=== PATIENT | male | born 1945 | race Caucasian/White ===

== ENCOUNTER 2019-07-20 16:37 | Inpatient (IN) | payer OTHER, MEDICARE ==
[~2019-07-20] VITALS: Ht 175.3 cm; Wt 110.0 kg
--- NOTE | 2019-07-20 16:37 | NUR ---
PT ARRIVES ALERT AND ORIENTED TO SELF ONLY WITH EMS
[2019-07-20 17:29] LABS: HEMATOCRIT 42.8 % (39.0-50.0); HEMOGLOBIN 14.2 g/dl (14.0-18.0); IMMATURE GRANULOCYTES 0.3 % (0.0-5.0); MEAN CELL VOLUME 87.5 fL CALC (80.0-100.0); MEAN CORPUSCULAR HGB CONC 33.2 g/L CALC (32.0-36.0); NEUT# 7.44 thou/uL (1.82-7.42); RED BLOOD COUNT 4.89 mill/uL (4.70-6.10); RED CELL DISTRI WIDTH 12.9 % (11.5-15.5)
[2019-07-20 17:32] LABS: URINE BILIRUBIN - DIPSTICK NEGATIVE (NEGATIVE); URINE BLOOD DIPSTICK NEGATIVE (NEGATIVE); URINE COLOR YELLOW; URINE GLUCOSE - DIPSTICK NEGATIVE (NEGATIVE); URINE KETONE TRACE mg/dL (NEGATIVE); URINE LEUK ESTERASE NEGATIVE (NEGATIVE); URINE NITRITE - DIPSTICK NEGATIVE (Negative); URINE PROTEIN - DIPSTICK NEGATIVE (NEG-TRACE); URINE SPECIFIC GRAVITY 1.025
[2019-07-20 17:41] LABS: BARBITURATES NEGATIVE (NEGATIVE); COCAINE NEGATIVE (NEGATIVE); METHADONE NEGATIVE (NEGATIVE); OXCYCODONE NEGATIVE (NEGATIVE); TETRAHYDROCANNABIONOL NEGATIVE (NEGATIVE); TRICYLIC ANTIDEPRESSANTS NEGATIVE (NEGATIVE)
--- NOTE | 2019-07-20 17:45 | NUR ---
PT RESTING QUIETLY ON STRETCHER,, AT 8EDSIDE
[2019-07-20 17:48] LABS: ALBUMIN 4.1 g/dL (3.2-5.0); ALKALINE PHOSPHATASE 76 u/l (38-126); ANION GAP 15 (6-22 (CALC)); BILIRUBIN, TOTAL 1.7 mg/dL (0.0-1.4); BUN 18 mg/dL (8-23); BUN/CREATININE RATIO 24 (12-20 (CALC)); CARBON DIOXIDE 21 mmol/l (22-30); CHLORIDE 101 mmol/l (95-108); CREATININE 0.7 mg/dL (0.7-1.3); ETHYL ALCOHOL 0 mg/dl (0-30); GFR > 60 ML/MIN (>=60 (CALC)); GFR FOR AFR.AMER. > 60 ML/MIN (>=60 (CALC)); LIPASE 58 u/l (23-300); MAGNESIUM 2.1 mg/dL (1.6-2.3); POTASSIUM 3.8 mmol/l (3.5-5.1); SGOT/AST 29 u/l (19-48); SODIUM 133 mmol/l (137-146); TOTAL PROTEIN 8.2 g/dL (6.3-8.2)
[2019-07-20 17:58] LABS: ACT PARTIAL THROMBO TIME 27.4 SECONDS (20.0-32.5); PROTHROMBIN TIME 10.6 SECONDS (9.0-12.5)
--- NOTE | 2019-07-20 18:19 | NUR ---
PT 8ACK FROM ULTRASOUND. STATES HE IS DOWN HERE ONLY FOR A SHORT TIME THAT HE AND HIS ARE STAYING OUT IN [facility] AND NORMALLY LIVE IN [place]. ASKED IF THIS IS CORRECT AND SHE STATES EVERYTHING IS CORRECT ALTHOUGH SHE STATES SHE HAS NOTICED IN LAST MONTH THAT HE HASNT 8EEN ALERT HE NORMALLY IS.
--- NOTE | 2019-07-20 18:44 | NUR ---
PT APPEARS TO REMAIN ALERT/ORIENTED X3, AT 8EDSIDE., ADVISED OF WAIT TIME FOR ULTRASOUND RESULTS AND XRAYS OF 8IL FEET.
--- NOTE | 2019-07-20 20:20 | NUR ---
PT STATES HAVING A 3/10 PAIN ON NUMERIC PAIN SCALE.
--- NOTE | 2019-07-21 04:11 | NUR ---
PT RESTING IN BED WITH EYES CLOSED. PT 0/10 ON FACES PAIN SCALE. PT HAS CONFUSION, PT UNABLE TO VERBALLY EXPRESS HIMSELF OR PROVIDE HEALTH INFORMATION/HISTORY. PT HAS NO S/S OF ANY ACUTE DISTRESS NOTED. BREATHING EASY AND UNLABORED.
[2019-07-21 04:25] VITALS: BP 140/80
[2019-07-21 07:00] VITALS: BP 149/71
--- NOTE | 2019-07-21 07:00 | NUR ---
PATIENT ON FLOOR NEXT TO BED IN STTING POSITION, URINE ON FLOOR, PATIENT ALERT WITH CONFUSION, PATIENT S/S RESP DISTRESS, PATIENT ON ROOM AIR, PATIENT NO C/O FALLS, NO APPARENT INJURY, NOTIFIED NO NEW ORDERS, ON-COMING RN AND OFF-GOING RN ASSISTED PATIENT TO BED, PATIENT STATED HE DID NOT HIT HEAD DURING UNWITNESS FALL, PATIENT TOILETED AND SHOWER GIVEN, WILL CONTINUE TO MONITOR PATIENT, BED ALARM ATTACH TO PATIENT, CALL LIGHT WITHIN REACH
--- NOTE | 2019-07-21 07:23 | NUR ---
PT HAD A FALL @0700 DR. TAYLOR NOTIFIED. NO APPARENT INJURIES NOTED, PT WAS FOUND ON THE FLOOR OF ROOM 271 SITTING ON THE FLOOR. ON-COMING NURSE NOTIFIED OF PATIENT FALL. PT IS TRANSFERRED BACK TO BED ASSIST X2. NO BLEEDING, SWELLING OR APPARENT INJURY NOTED. PT STABLE AND IN BED WITH ALARM. ALL SAFETY AND COMFORT MEASURES MAINTAINED AT ALL TIMES.
--- NOTE | 2019-07-21 07:32 | NUR ---
PT HAS PULLED OUT 22G IN LEFT WRIST, 22G PLACED IN RIGHT UPPER ANTERIOR ARM, NO S/S OF INFILTRATE, SKIN PATENT SKIN WARM AND DRY TO THE TOUCH. PT HAS INCREASED RESTLESSNESS AND HAS EPISODES OF YELLING OUT VERY LOUDLY. PT IS NOT COMMUNICATING OR ANSWER QUESTIONS AT THIS TIME. PT IS IN BED WITH ALARM. REPORT GIVEN TO DAY NURSE.
--- NOTE | 2019-07-21 07:39 | NUR ---
PT HAD A FALL @0700 CALLED AND MADE AWARE THAT PT HAS NOT SUSTAINED ANY APPARENT INJURY. DAY NURSE NOTIFIED OF FALL. PT FOUND IN ROOM 271 SITTING ON THE FLOOR. PT IS ALERT WITH CONFUSION PRIOR TO FALL. PT IS REPOSITIONED BACK TO BED WITH ASSIST X2. V/S WNL, PT STABLE IN BED WITH BED ALARM. ALL SAFETY AND COMFORT MEASURES MAINTAINED AT ALL TIMES.
--- NOTE | 2019-07-21 11:36 | NUR ---
PATIENT A/OX2, NO C/O PAIN, NO S/S RESP DISTRESS, PATIENT ON ROOM AIR, PATIENT SITTING UP IN BED, PATIENT REMOVED IV, ATTEMPTED TO REDIRECT PATIENT PURPOSE OF IV THERAPY REDIRECTED PATIENT ON PLACE AND TIME WAS UNSUCCESSFUL, PATIENT SPOUSE NOTIFIED ABOUT PATIENT FALL AND PLAN OF CARE FOR FALL PREVENTION, BED ALARM ATTACH TO PATIENT, WILL CONTINUE TO MONITOR PATIENT, CALL LIGHT WITHIN REACH
[2019-07-21 15:00] VITALS: BP 157/83
--- NOTE | 2019-07-21 16:30 | NUR ---
PATIENT ALERT WITH CONFUSION, NO C/O PAIN, NO S/S RESP DISTRESS, PATIENT ON ROOM AIR, PATIENT REMOVED SECOND IV, NOTIFIED DR. TAYLOR ABOUT PATIENT IS RESTLESS, REINSERT 3RD IV FOR IVF AND ANTIBOTICS, WILL CONTINUE TO MONITOR PATIENT, CALL LIGHT WITHIN REACH
[2019-07-21 18:50] VITALS: BP 144/77
--- NOTE | 2019-07-21 19:00 | NUR ---
RECEIVED REPORT FROM DAY NURSE PATIENT HAD SEVERAL ATTEMPT ON SETTING OFF BED ALARM, GAIT UNSTEADY, PATIENT HAVING HALLUCINATION, ATIVAN GIVEN BY DAY NURSE.
--- NOTE | 2019-07-21 22:00 | NUR ---
CT DONE AT THIS TIME.
--- NOTE | 2019-07-22 02:01 | NUR ---
CALLED CARDINAL AND INFORMED ABOUT PATIENT GOING ON 4TH DOSE OF VANCO WITH ORDERS TO GET TROUGH
--- NOTE | 2019-07-22 02:10 | NUR ---
TROUGH 11, CALLED AND SPOKE TO [facility] AND TO CONTINUE CURRENT DOSE
[2019-07-22 03:28] VITALS: BP 125/73
--- NOTE | 2019-07-22 05:10 | NUR ---
PATIENT CALM AT THIS TIME, NO DISCOMFORTS NOTED AT THIS TIME, CIWA SCORE 0
--- NOTE | 2019-07-22 07:15 | NUR ---
REPORT RECEIVED FROM RHODA DOW. PT RESTING IN BED SEMI FOWLERS WITH EYES OPEN; ALERT AND ORIENTED ONLY TO SELF. VSS. DENIES PAIN. RESPIRATIONS EVEN AND UNLABORED ON ROOM AIR. IV FLUIDS INFUSING WITHOUT DIFFICULTY; IV SITE APPEARS HEALTHY. LUNGS ARE CLEAR. HEART RATE IRREGULAR. 4+ PITTING PEDAL EDEMA WITH MODERATE REDNESS TO BILTERAL FEET. PLAN OF CARE REVIEWED. PT ENCOURAGED TO VERABLIZE CONCERNS. STATES UNDERSTANDING. SAFETY MEASURS IN PLACE INCLUDING BED ALARM. CALL LIGHT WITHIN REACH.
[2019-07-22 08:00] VITALS: BP 139/85
--- NOTE | 2019-07-22 08:38 | NUR ---
IV PUMP ALARM SOUNDED; PT SITTING UP IN BED AFTER EATING BREAKFAST WITH IV SITE REMOVED AND SITTING ON BREAKFAST TRAY. WHEN ASKED WHY PT REMOVED HIS IV HE SMILES AND REPONDS, "IT WAS FINISHED."
--- NOTE | 2019-07-22 09:07 | NUR ---
S: OSIEL MAGALLON is a 73 M who presents with cellulitis. He has a history of hypertensio and hyperlipidemia. All medications in patient's chart were reviewed. O: VS: BP ,139/85 mmHg, P 99 bpm, RR 16 breaths/min, T 98 F W 110 kg, HT 69 in, Scr 0.7 mg/dl A: Blood culture is pending. P: Pt recd vancomycin 1g IV x1 dose in the ED on 07/20/19 @ 1738. Vancomycin was ordered for pharmacy to dose. Increased to vancomycin 1250mg IV q8h @ 0100, 0900, and 1700. Pt recd 3 doses of 1250mg. Vanco trough before 0100 dose was 11. Continue current dose. Vancomycin goal trough is between 10-15 mcg/ml. Pharmacy will follow and or advise on antibiotics use as needed.
--- NOTE | 2019-07-22 09:31 | NUR ---
NEW IV STARTED TO LFA AND VANCO INFUSING AT THIS TIME. PT GOT A SHOWER AND NOW RESTING IN BED. -
[2019-07-22] MEDS ORDERED: VITAMIN B-1100 M1 PO (12:04)
[2019-07-22] MEDS ORDERED: DOXYCYCL HYC100 MG PO (12:04)
[2019-07-22] MEDS ORDERED: TAB-A-VITE W/1 COMBO PO (12:04)
[2019-07-22] MEDS ORDERED: LIBRIUM25 MG PO (12:07)
--- NOTE | 2019-07-22 13:15 | NUR ---
PHYSICAL THERAPY AT BEDSIDE FOR EVAL.
--- NOTE | 2019-07-22 14:30 | NUR ---
CASE MANGEMENT AT BEDSIDE ALONG WITH FAMILY TO DISCUSS PLAN OF CARE.
[2019-07-22 14:45] VITALS: BP 141/80
--- NOTE | 2019-07-22 17:00 | NUR ---
TELEMETRY PLACED [facility]; SINUS RHYTHM AT THIS TIME.
--- NOTE | 2019-07-22 18:32 | NUR ---
PT ALERT WITH CONFUSION EVEN WITH FAMILY AT BEDSIDE. BECOMING MORE EASILY AGITATED. CONTINUES TO ATTEMPT TO REMOVE IV SITE. IV FLUIDS AND VANCO INFUSING AT THIS TIME. IV SITE PROTECTED WITH COBAN, HOWEVER, PT CONTINUES TO ATTEMPT TO REMOVE. FAMILY AT BEDSIDE WITH CONSTANT VERBAL CUES. WILL CONTINUE TO MONITOR.
[2019-07-22 18:53] VITALS: BP 138/81
--- NOTE | 2019-07-22 18:53 | NUR ---
NOTIFIED STAFF THAT PT REMOVED IV SITE. PT UNABLE TO EXPLAIN WHY HE IS REMOVING IV'S. HAS EXPRESSIVE APHASIA.
--- NOTE | 2019-07-22 19:51 | NUR ---
RECIVED REPORT FROM DAY NURSE PATIENT MULTIPLE SETS OFF BED ALARM, AMBULATING IN CAST [place] GAIT, ASSISTED BACK IN BED.
--- NOTE | 2019-07-22 19:54 | NUR ---
CALLED DR. EDWARDS NOTIFIED OF PATIENT BEING RESTLESS AND RIPPING OF IV WITH ORDERS MADE.
[2019-07-22 23:35] VITALS: BP 134/82
--- NOTE | 2019-07-23 00:13 | NUR ---
ALICE EDWARDS ABOUT PATIENT AMBULATING AND GOING FROM ROOM TO ROOM AND PULLING BED APART, WITH ORDERS MADE.
[2019-07-23 03:35] VITALS: BP 141/73
--- NOTE | 2019-07-23 03:39 | NUR ---
PATIENT INCONTINENT OF BLADDER, CARE GIVEN.
--- NOTE | 2019-07-23 05:16 | NUR ---
PATIENT APPEARS TO BE SLEEPING EYES CLOSED SITTING IN RECLINER WITH FEET PROPPED UP.
[2019-07-23 05:22] LABS: HEMATOCRIT 38.8 % (39.0-50.0); MEAN CELL VOLUME 87.2 fL CALC (80.0-100.0); MEAN CORPUSCULAR HGB 29.2 pG CALC (26.0-32.0); MEAN CORPUSCULAR HGB CONC 33.5 g/L CALC (32.0-36.0); RED BLOOD COUNT 4.45 mill/uL (4.70-6.10); RED CELL DISTRI WIDTH 12.8 % (11.5-15.5)
[2019-07-23 05:54] LABS: ANION GAP 13 (6-22 (CALC)); BUN 9 mg/dL (8-23); BUN/CREATININE RATIO 13 (12-20 (CALC)); CARBON DIOXIDE 20 mmol/l (22-30); CHLORIDE 106 mmol/l (95-108); CREATININE 0.7 mg/dL (0.7-1.3); GFR > 60 ML/MIN (>=60 (CALC)); GFR FOR AFR.AMER. > 60 ML/MIN (>=60 (CALC)); MAGNESIUM 1.9 mg/dL (1.6-2.3); POTASSIUM 3.6 mmol/l (3.5-5.1); SODIUM 136 mmol/l (137-146)
--- NOTE | 2019-07-23 07:00 | NUR ---
SHIFT CHANGE REPORT, PT AWAKE AND ALERT, DISORIENTED TO TIME, SITTING UP IN RECLINER, DENIES PAIN, IVF INFUSING, BODY ALARM IN PLACE, CALL DE LUNA IN REACH.
[2019-07-23 08:20] VITALS: BP 137/83
[2019-07-23 10:54] VITALS: BP 140/81
--- NOTE | 2019-07-23 12:00 | NUR ---
SITTING UP IN RECLINER, ALL NEEDS ADDRESSED, FAMILY VISITING.
--- NOTE | 2019-07-23 14:16 | NUR ---
The patient is seen for a specific gait and balance assessment Limitations include the following Mentation- oriented to person only Balance - poor as evidenced by modified DGI 07/17 Gait analysis- weakness of the right hip evidenced by a [place] gait - the patient does report pain with weightbearing but is unable to elaborate The patient is at risk for falls . He demonstrates a poor motor plan for LOB and frquently loses his balance to the right. He also demonstrates a short stride and a tendency to lean forward. He would benefit from SNF to work on righting reflexes, strength of the hips. He demonstrated enough cognition to follow simple commands and would respnd to gait training with simplistic patient education to decrease his burden of care and improve his independence. As of now he is a high fall risk evidenced by the DGI test and Romberg positioning which he could hold only about 10 seconds
[2019-07-23 15:18] VITALS: BP 128/74
--- NOTE | 2019-07-23 16:00 | NUR ---
SITTING UP AT BEDSIDE, IV CATHETER FOUND DISLODGED, NO BLEEDING OBSERVED, FAMILY AT BEDSIDE.
--- NOTE | 2019-07-23 20:00 | NUR ---
PT IS CONFUSED AND INSISTS HE NEEDS TO GO HOME TO HIS . ATTEMPTS TO REORIENT PT UNSUCCESFUL. AMBULATED PT IN HALLWAY FOR DISTRACTION. CALLED PT'S AND LET PT SPEAK TO . OFFERED PT'S FOR HERSLEF OR OTHER FAMILY MEMBER TO STAY W/ PT. DECLINES AT THIS TIME. PT DOES NOT WANT TO RETURN TO BED. AGREES TO SIT IN CHAIR. TAB ALARM PLACED ON PT.
[2019-07-23 20:40] VITALS: BP 155/88
--- NOTE | 2019-07-23 21:45 | NUR ---
PT IS BECOMING VISIBLY AGITATED, PACING IN HALLWAY, ATTEMPTING TO ENTER OTHER ROOMS. WILL NOT SIT OR LAY DOWN. SPOKE W/ DR. STANFORD W/ CURRENT ASSESMENT. ORDER FOR ATIVAN RECEIVED, SEE ORDERS. SECURITY AND NURSING LOG LOADER ON UNIT, ABLE TO REDIRECT PT BACK TO ROOM. LINENS CHANGED, GOWN CHANGED. PT REDIRECTED INTO LAYING BACK IN BED AND MEDICATED FOR AGITATION, SEE MAR.
--- NOTE | 2019-07-24 | NUR ---
PT SLEEPING, APPEARS COMFORTABLE AND IN NO DISTRESS. RESP REG AND UNLABORED. CALL DE LUNA REMAINS WITHIN REACH. BED ALARM ON. BED LOCKED IN LOW POSITION WITH TOP BED RAILS UP X2. ITEMS WITHIN REACH.
--- NOTE | 2019-07-24 00:45 | NUR ---
PT WOKE UP, GOT OUT OF BED. SET OFF BED ALARM. URINATED ON FLOOR. LOST BALANCE BUT CAUGHT HIMSELF ON CLOSEST WALL. ABLE TO REDIRECT PT TO SIT BACK DOWN IN BED BUT PT REFUSES TO LAY DOWN. PT MEDICATED FOR AGITATION, SEE MAR. W/ ASSIST PT LAYED BACK DOWN AND PUSHED HIMSELF UP IN BED TO A COMFORTABLE POSITION BEFORE PROMPTLY FALLING BACK ASLEEP.
--- NOTE | 2019-07-24 05:23 | NUR ---
PT IS AWAKE AND ATTEMPTING TO GET OOB, AND PULLING AT IV. ABLE TO REDIRECT HIM TO SIT DOWN. PT IS MIMICKING LIFTING A BEVERAGE TO HIS MOUTH AND DRINKING. OFFERED PT WATER. PT STATES "THATS OK". PT MEDICATED FOR AGITATION AND ASSISTED TO RECLINER, RECLINED AND MADE COMFORTABLE. TAB ALARM APPLIED. CALL DE LUNA WITHIN REACH.
--- NOTE | 2019-07-24 05:52 | NUR ---
PT SITTING UP IN RECLINER CHAIR, DRINKING WATER. PT IS CALM, NO APPARENT DISTRESS. CALL DE LUNA IN REACH. TAB ALARM ATTATCHED.
[2019-07-24 05:59] VITALS: BP 148/79
--- NOTE | 2019-07-24 07:15 | NUR ---
PATIENT ALERT WITH CONFUSION, PATIENT SITTING UP IN CHAIR, NO S/S RESP DISTRESS, PATIENT ON ROOM AIR, PATIENT HAS NO S/S PAIN, PATIENT ONE PERSON ASSIST TO RESTROOM PATIENT HAS AN UNSTEADY GAIT, CHAIR ALARM IS ATTACH TO PATIENT, WILL CONTINUE TO MONITOR PATIENT, CALL LIGHT WITHIN REACH
--- NOTE | 2019-07-24 08:36 | NUR ---
PT WAS SEEN FOR P.T. THIS AM. NOTED R HAND TREMOR AND AMS PT WAS CONFUSED AND WAS UNABLE TO FOLLOW VERBAL INSTRUCTIONS UNLESS GIVEN TACTILE CUES WELL. MR. CARTAGENA HAS A HIGH RISK FOR FALLS HE LACKS SAFETY AWARENESS. HE WAS ABLE TO SIT>STAND WITH MULTIPLE ATTEMPTS USING B HANDS AND CGA. HE THEN AMBULATED IN THE ROOM W/ RW AND CGA. AGAIN, FAULTY USE OF WALKER AND MODERATE BAL INSTABILITY WERE SEEN. HE HAD UNCERTAINTY OF THE PATH/DIRECTION TO TAKE AND WAS INEFFECTIVELY MANEUVERING THE RW. HE WAS GIVEN MIN A AND TACTILE CUES TO ASSUME SUPINE FROM SITTING. MR. CARTAGENA WILL GREATLY BENEFIT FROM ECF OR IN-PT REHAB UPON DC. HIS AMPAC SCORE TODAY IS 10 POINTS.
[2019-07-24 10:03] VITALS: BP 108/66
--- NOTE | 2019-07-24 12:00 | NUR ---
PATIENT A/OX1, NO C/O PAIN, NO S/S RESP DISTRESS, PATIENT ON ROOM AIR, PATIENT TOLERATED IV ANTIBOTICS, PATIENT RESTING IN BED, FAMILY AT BESIDE, CALL LIGHT WITHIN REACH, WILL CONTINUE TO MONITOR PATIENT
[2019-07-24 15:41] VITALS: BP 128/78
--- NOTE | 2019-07-24 15:55 | NUR ---
PATIENT ABLE TO MAKE NEEDS KNOWN, NO C/O PAIN, NO S/S RESP DISTRESS, PATIENT ON ROOM AIR, PATIENT SKIN IS INTACT, PATIENT TOLERATED NEW PO ANTIBOTICS, WILL CONTINUE TO MONITOR PATIENT, BED ALARM IS ON, CALL LIGHT WITH REACH
[2019-07-24 18:45] VITALS: BP 169/103
--- NOTE | 2019-07-24 19:07 | NUR ---
PT MEDICATED FOR AGITATION, UP OOB ATTEMPTING TO LEAVE ROOM. STATES "I NEED TO GO [place] TO MY ". UNABLE TO REDIRECT PT. SEE MAR FOR ATIVAN ADMIN. PT ASSISTED BACK TO BED W/ +2 ASSIST. MADE COMFORTABLE IN BED. BED LOCKED IN LOW POSITION W/ BEDRAILS UPX2. BED ALARM ON. TAB ALARM CLIPPED TO PTS GOWN. ITEMS AND CALL DE LUNA WITHIN REACH.
--- NOTE | 2019-07-24 21:10 | NUR ---
PT IS DROWSY BUT ROUSABLE WHEN HIS NAME IS CALLED. PT IS CALM AND COOPERATIVE @ THIS TIME. TOLERATED PILLS W/ SIPS H2O. PT RESPONDS "THANK YOU" AND "GOOD NIGHT". FALL AND SAFETY INTERVENTION REMAIN IN PLACE.
--- NOTE | 2019-07-24 22:50 | NUR ---
PT AWAKE, ATTEMPTING TO GET OOB. PT ASSISTED UP FOR TOILETING. PT WAS INCONTINENT OF URINE ALREADY. PARTIAL LINEN CHANGE AND MATILDE-CARE COMPLETED. PT ASSISTED BACK TO BED AND MADE COMFARTABLE. FALL AND SAFETY INTERVENTIONS REMAIN IN PLACE.
--- NOTE | 2019-07-24 23:08 | NUR ---
PT ATTEMPTING TO LEAVE ROOM AGAIN, STARTED TO BECOME AGITATED WHEN ATTEMPTS MADE TO REDIRECT. CIWA=20. MEDICATED W/ ATIVAN. SEE MAR.
--- NOTE | 2019-07-25 01:18 | NUR ---
PT SLEEPING, APPEARS COMFORTABLE. NO APPARENT DISTRESS. GENTLY SNORING. RESP REG & UNLABORED. FALL AND SAFETY INTERVENTIONS REMAIN IN PLACE.
--- NOTE | 2019-07-25 04:00 | NUR ---
PT CALM, DROWSY BUT ROUSABLE. RESTING COMFORTABLY. NO CHANGES IN ASSESMENT. CALL DE LUNA REMAINS WITHIN REACH. SAFETY AND FALL PRECAUTIONS REMAIN IN PLACE.
[2019-07-25 04:10] VITALS: BP 128/91
[2019-07-25 05:17] LABS: HEMATOCRIT 38.1 % (39.0-50.0); HEMOGLOBIN 12.5 g/dl (14.0-18.0); MEAN CELL VOLUME 87.8 fL CALC (80.0-100.0); MEAN CORPUSCULAR HGB 28.8 pG CALC (26.0-32.0); MEAN CORPUSCULAR HGB CONC 32.8 g/dL CAL (32.0-36.0); RED BLOOD COUNT 4.34 mill/uL (4.70-6.10); RED CELL DISTRI WIDTH 12.6 % (11.5-15.5)
[2019-07-25 05:37] LABS: ANION GAP 12 (6-22 (CALC)); BUN 7 mg/dL (8-23); BUN/CREATININE RATIO 11 (12-20 (CALC)); CARBON DIOXIDE 21 mmol/l (22-30); CHLORIDE 107 mmol/l (95-108); CREATININE 0.7 mg/dL (0.7-1.3); GFR > 60 ML/MIN (>=60 (CALC)); GFR FOR AFR.AMER. > 60 ML/MIN (>=60 (CALC)); MAGNESIUM 1.9 mg/dL (1.6-2.3); POTASSIUM 3.6 mmol/l (3.5-5.1); SODIUM 137 mmol/l (137-146)
--- NOTE | 2019-07-25 07:28 | NUR ---
PATIENT RESTING IN BED, NO S/S RESP DISTRESS, PATIENT ON ROOM AIR, NO S/S PAIN, PATIENT BED ALARM ON, WILL CONTINUE TO MONITOR PATIENT CALL LIGHT WITHIN REACH
--- NOTE | 2019-07-25 07:55 | NUR ---
PATIENT ALERT WITH CONFUSION, PATIENT WOKE UP AGITATED, PATIENT REMOVED IV, TREATED PATIENT AGITATION PER MD ORDERS, PATIENT UP IN CHAIR, CHAIR ALARM ATTACH TO PATIENT, CALL LIGHT WITHIN REACH, WILL CONTINUE TO MONITOR PATIENT
[2019-07-25 08:30] VITALS: BP 98/57
--- NOTE | 2019-07-25 15:00 | NUR ---
PATIENT ALERT WITH CONFUSION, NO S/S RESP DISTRESS, PATIENT ON ROOM AIR, NO S/S PAIN, PATIENT DISCHARGED TO [facility], NURSE TO NURSE REPORT GIVEN TO NURSE MULLER
--- NOTE | 2019-07-25 16:40 | NUR ---
PATIENT DISCHARGED TO [facility], PATIENT TRANSPORT VIA STRETCHER TO REHAB BY HEALTHCARE STAFF
== END 2019-07-25 16:43 | DRG 602 ==
LOC: ED 16:37 → ED-I 20:30 → ED 07-21 00:27 → MS2 07-21 00:28 → ED-I 07-21 00:28 → MS2 07-21 01:00
PROVIDERS: Nurse Practitioner Family; ADMIT Internal Medicine; ATTEND Internal Medicine
DX: L03.115 Cellulitis of right lower limb (principal); G93.41 Metabolic encephalopathy; E87.1 Hypo-osmolality and hyponatremia; F10.232 Alcohol dependence with withdrawal with perceptual disturbance; L03.116 Cellulitis of left lower limb; M62.81 Muscle weakness (generalized); I10 Essential (primary) hypertension; E78.5 Hyperlipidemia, unspecified; H91.90 Unspecified hearing loss, unspecified ear
CPT/HCPCS: G0378; J2060; J3370; Q9967